=== PATIENT | male | born 1990 | race African-American/Black ===

== ENCOUNTER 2018-06-04 09:38 | Emergency (ER) | payer MEDICAID ==
[~2018-06-04] VITALS: Ht 170.2 cm; Wt 64.5 kg
[~2018-06-04 09:38] MED LIST: ALBU8HFA PO; ONDA8TAB9 PO
[2018-06-04] MEDS ORDERED: ondansetron/PF 4mg/2ml inj IV ONE (10:00)
[2018-06-04] MEDS ORDERED: normal saline 1000ML IV soln IVB ONE (10:00)
[2018-06-04] MEDS ORDERED: ketorolac trometh. 30mg/ml inj. IV ONE (10:00)
[2018-06-04 10:40] LABS: BASOPHILS % (AUTO) 0.8 % (0-1); EOSINOPHILS % (AUTO) 0.4 % (0-6); HEMATOCRIT 43.2 % (42.0-52.0); HEMOGLOBIN 15.2 g/dl (14.0-17.9); LYMPHOCYTES # (AUTO) 0.8 X10'3 (1.1-4.8); LYMPHOCYTES % (AUTO) 15.4 % (21-51); MEAN CORPUSCULAR HEMOGLOBIN 34.7 PG (27.0-31.0); MEAN CORPUSCULAR HGB CONC 35.1 g/dL (33.0-36.5); MEAN CORPUSCULAR VOLUME 98.6 FL (78-98); MONOCYTES # (AUTO) 0.7 X10'3 (0-0.9); MONOCYTES % (AUTO) 14.1 % (2-12); NEUTROPHILS # (AUTO) 3.6 X10'3 (1.8-7.7); NEUTROPHILS % (AUTO) 69.3 % (42-75); PLATELET COUNT 297 X10'3 (140-440); RED BLOOD COUNT 4.38 X10'6 (4.70-6.10); WHITE BLOOD COUNT 5.2 X10'3 (4.5-11.0)
[2018-06-04 10:53] LABS: ALANINE AMINOTRANSFERASE 27 U/L (12-78); ALBUMIN 4.3 G/DL (3.4-5.0); ALBUMIN/GLOBULIN RATIO 1.1 (1.1-1.5); ALKALINE PHOSPHATASE 81 IU/L (46-116); ANION GAP 11 (8-16); ASPARTATE AMINO TRANSFERASE 31 U/L (10-37); BILIRUBIN,TOTAL 0.5 MG/DL (0.1-1.0); BLOOD UREA NITROGEN 14 MG/DL (7-18); BUN/CREATININE RATIO 13.3 (5.4-32.0); CALCIUM 9.4 MG/DL (8.5-10.1); CHLORIDE 96 MMOL/L (99-107); CREATININE 1.05 MG/DL (0.60-1.10); GLUCOSE 89 MG/DL (70-104); LIPASE 93 U/L (73-393); POTASSIUM 3.7 MMOL/L (3.5-5.1); SODIUM 131 MMOL/L (135-145); TOTAL CARBON DIOXIDE 24.4 MMOL/L (24-32); TOTAL PROTEIN 8.2 G/DL (6.4-8.2); eGFR > 90 ML/MIN
[2018-06-04] MEDS ORDERED: ONDA4TAB6 PO (11:00)
[2018-06-04 11:21] VITALS: BP 147/99
== END 2018-06-04 11:23 | disposition home or self-care (01) ==
LOC: ER 09:38
DX: R11.2 Nausea with vomiting, unspecified (principal); R19.7 Diarrhea, unspecified; F17.200 Nicotine dependence, unspecified, uncomplicated; F12.90 Cannabis use, unspecified, uncomplicated; Z98.890 Other specified postprocedural states
CPT/HCPCS: 36415; 80053; 83690; 85025; 96374; 96375; 99283; J1885; J2405; J7030; 96361

== ENCOUNTER 2018-07-12 10:41 | Emergency (ER) | payer MEDICAID ==
[~2018-07-12] VITALS: Ht 170.2 cm; Wt 61.4 kg
[~2018-07-12 10:41] MED LIST changes: +ONDA4TAB6 PO
[2018-07-12 10:44] VITALS: BP 134/78
== END 2018-07-12 11:53 | disposition home or self-care (01) ==
LOC: ER 10:42
DX: F41.9 Anxiety disorder, unspecified (principal); F12.90 Cannabis use, unspecified, uncomplicated; Z98.890 Other specified postprocedural states
CPT/HCPCS: 93005; 99284

== ENCOUNTER 2020-12-28 16:02 | Emergency (ER) | payer MEDICAID ==
[~2020-12-28] VITALS: Ht 170.2 cm; Wt 60.9 kg
[2020-12-28 16:07] VITALS: BP 131/87
[2020-12-28] MEDS ORDERED: bacitracin 15gm ointment TP ONE (17:00)
[2020-12-28] MEDS ORDERED: ketorolac tromethamine 15mg/ml inj. IM ONE (17:10)
== END 2020-12-28 18:12 | disposition home or self-care (01) ==
LOC: ER 16:03
DX: S50.812A Abrasion of left forearm, initial encounter (principal); S50.811A Abrasion of right forearm, initial encounter; S80.212A Abrasion, left knee, initial encounter; F41.9 Anxiety disorder, unspecified; F12.10 Cannabis abuse, uncomplicated; V49.9XXA Car occupant (driver) (passenger) injured in unspecified traffic accident, initial encounter; Y93.89 Activity, other specified; Y92.89 Other specified places as the place of occurrence of the external cause; Y99.8 Other external cause status
CPT/HCPCS: 96372; 99284; J1885

== ENCOUNTER 2021-01-24 22:53 | Emergency (ER) | payer MEDICAID ==
[~2021-01-24] VITALS: Ht 170.2 cm; Wt 61.4 kg
[2021-01-24 22:56] VITALS: BP 120/72
== END 2021-01-25 01:07 | disposition home or self-care (01) ==
LOC: ER 22:54
DX: R68.84 Jaw pain (principal); R42 Dizziness and giddiness; F41.9 Anxiety disorder, unspecified; F12.90 Cannabis use, unspecified, uncomplicated; Z98.890 Other specified postprocedural states; Z79.899 Other long term (current) drug therapy
CPT/HCPCS: 99281

== ENCOUNTER 2023-01-26 09:47 | Emergency (ER) | payer MEDICAID ==
[~2023-01-26] VITALS: Ht 170.2 cm; Wt 60.2 kg
[2023-01-26 10:57] LABS: BASOPHILS % (AUTO) 0.9 % (0-1); EOSINOPHILS # (AUTO) 0.2 X10'3 (0-0.9); EOSINOPHILS % (AUTO) 3.3 % (0-6); HEMATOCRIT 38.8 % (42.0-52.0); HEMOGLOBIN 13.3 g/dl (14.0-17.9); LYMPHOCYTES # (AUTO) 1.6 X10'3 (1.1-4.8); LYMPHOCYTES % (AUTO) 31.6 % (21-51); MEAN CORPUSCULAR HEMOGLOBIN 34.3 PG (27.0-31.0); MEAN CORPUSCULAR HGB CONC 34.2 g/dL (33.0-36.5); MEAN CORPUSCULAR VOLUME 100.2 FL (78-98); MEAN PLATELET VOLUME 7.9 FL (7.4-10.4); MONOCYTES # (AUTO) 0.7 X10'3 (0-0.9); MONOCYTES % (AUTO) 12.7 % (2-12); NEUTROPHILS # (AUTO) 2.6 X10'3 (1.8-7.7); NEUTROPHILS % (AUTO) 51.5 % (42-75); PLATELET COUNT 316 X10'3 (140-440); RED BLOOD COUNT 3.88 X10'6 (4.70-6.10); RED CELL DISTRIBUTION WIDTH 13.2 % (11.5-14.5); WHITE BLOOD COUNT 5.1 X10'3 (4.5-11.0)
[2023-01-26 11:13] LABS: ALANINE AMINOTRANSFERASE 32 U/L (12-78); ALBUMIN 3.5 G/DL (3.4-5.0); ALBUMIN/GLOBULIN RATIO 0.9 (1.1-1.5); ALKALINE PHOSPHATASE 84 IU/L (46-116); AMYLASE 103 U/L (25-115); ANION GAP 2 (8-16); BILIRUBIN,TOTAL 0.1 MG/DL (0.1-1.0); BLOOD UREA NITROGEN 10 MG/DL (7-18); BUN/CREATININE RATIO 11.1 (10.0-20.0); CALCIUM 9.2 MG/DL (8.5-10.1); CHLORIDE 105 MMOL/L (99-107); GLUCOSE 91 MG/DL (70-104); POTASSIUM 3.8 MMOL/L (3.5-5.1); SODIUM 139 MMOL/L (135-145); TOTAL CARBON DIOXIDE 31.9 MMOL/L (24-32); TOTAL PROTEIN 7.2 G/DL (6.4-8.2); eCRCL 99 ML/MIN; eGFR > 90 ML/MIN
[2023-01-26 11:14] LABS: ASPARTATE AMINO TRANSFERASE 28 U/L (10-37); LIPASE 41 U/L (16-77)
[2023-01-26 11:42] VITALS: BP 140/89; PULSE 76; RESP 12; TEMP 97.8; O2SAT 100
--- NOTE | 2023-01-26 11:55 | NUR ---
PA NOTIFIED THAT PT IS ROOM READY FOR [facility]
[2023-01-26] MEDS ORDERED: HYDR25SU32 RC (13:04)
== END 2023-01-26 13:25 | disposition home or self-care (01) ==
LOC: ER 09:48
DX: K64.8 Other hemorrhoids (principal); F41.9 Anxiety disorder, unspecified; F12.10 Cannabis abuse, uncomplicated; Z79.899 Other long term (current) drug therapy
CPT/HCPCS: 36415; 80053; 82150; 83690; 85025; 99283

== ENCOUNTER 2023-01-27 16:20 | Emergency (ER) | payer MEDICAID ==
[~2023-01-27] VITALS: Ht 170.2 cm; Wt 60.1 kg
[~2023-01-27 16:20] MED LIST changes: +HYDR25SU32 RC
[2023-01-27 16:51] VITALS: BP 119/73; PULSE 103; RESP 19; TEMP 97.9; O2SAT 100
[2023-01-27 18:43] LABS: BASOPHILS % (AUTO) 0.4 % (0-1); EOSINOPHILS # (AUTO) 0.2 X10'3 (0-0.9); EOSINOPHILS % (AUTO) 1.8 % (0-6); HEMATOCRIT 38.4 % (42.0-52.0); HEMOGLOBIN 13.1 g/dl (14.0-17.9); LYMPHOCYTES # (AUTO) 0.9 X10'3 (1.1-4.8); LYMPHOCYTES % (AUTO) 11.1 % (21-51); MEAN CORPUSCULAR HGB CONC 34.1 g/dL (33.0-36.5); MEAN CORPUSCULAR VOLUME 99.8 FL (78-98); MEAN PLATELET VOLUME 7.4 FL (7.4-10.4); MONOCYTES % (AUTO) 12.1 % (2-12); NEUTROPHILS # (AUTO) 6.3 X10'3 (1.8-7.7); NEUTROPHILS % (AUTO) 74.6 % (42-75); PLATELET COUNT 333 X10'3 (140-440); RED BLOOD COUNT 3.85 X10'6 (4.70-6.10); RED CELL DISTRIBUTION WIDTH 13.2 % (11.5-14.5); WHITE BLOOD COUNT 8.4 X10'3 (4.5-11.0)
[2023-01-27 18:55] LABS: ALANINE AMINOTRANSFERASE 30 U/L (12-78); ALBUMIN 3.5 G/DL (3.4-5.0); ALBUMIN/GLOBULIN RATIO 0.9 (1.1-1.5); ALKALINE PHOSPHATASE 92 IU/L (46-116); ANION GAP 6 (8-16); ASPARTATE AMINO TRANSFERASE 27 U/L (10-37); BILIRUBIN,TOTAL 0.1 MG/DL (0.1-1.0); BLOOD UREA NITROGEN 9 MG/DL (7-18); CALCIUM 9.2 MG/DL (8.5-10.1); CHLORIDE 102 MMOL/L (99-107); GLUCOSE 104 MG/DL (70-104); POTASSIUM 3.7 MMOL/L (3.5-5.1); SODIUM 139 MMOL/L (135-145); TOTAL CARBON DIOXIDE 31.4 MMOL/L (24-32); TOTAL PROTEIN 7.5 G/DL (6.4-8.2); eCRCL 89 ML/MIN; eGFR > 90 ML/MIN
[2023-01-27 18:57] LABS: LIPASE 38 U/L (16-77)
--- NOTE | 2023-01-28 06:30 | NUR ---
NOT IN LOBBY FOR DAY SHIFT. PT CALLED X3 AT [phone]. NOT IN LOBBY
== END 2023-01-28 06:31 | disposition left against medical advice (07) ==
LOC: ER 16:20
DX: R10.31 Right lower quadrant pain (principal); Z53.21 Procedure and treatment not carried out due to patient leaving prior to being seen by health care provider
CPT/HCPCS: 36415; 80053; 83690; 85025; 99281

== ENCOUNTER 2023-12-13 16:17 | Emergency (ER) | payer MEDICAID ==
[~2023-12-13] VITALS: Ht 170.2 cm; Wt 59.0 kg
[2023-12-13 16:27] VITALS: BP 118/76; PULSE 50; RESP 14; TEMP 97.8; O2SAT 98
== END 2023-12-13 17:45 | disposition home or self-care (01) ==
LOC: ER 16:18
DX: S60.221A Contusion of right hand, initial encounter (principal); M79.641 Pain in right hand; F41.9 Anxiety disorder, unspecified; F12.90 Cannabis use, unspecified, uncomplicated; Z88.8 Allergy status to other drugs, medicaments and biological substances; Z79.52 Long term (current) use of systemic steroids; Z79.899 Other long term (current) drug therapy; Z98.890 Other specified postprocedural states; X58.XXXA Exposure to other specified factors, initial encounter; Y93.89 Activity, other specified; Y92.89 Other specified places as the place of occurrence of the external cause; Y99.8 Other external cause status
CPT/HCPCS: 73130; 99283; A6449

== ENCOUNTER 2024-04-23 23:37 | Emergency (ER) | payer MEDICAID ==
[~2024-04-23] VITALS: Ht 170.2 cm; Wt 63.6 kg
[2024-04-24] MEDS: ondansetron 4mg rapidly disintigrating tab PO ONE (00:59)
[2024-04-24] MEDS: meclizine 12.5mg tablet PO ONE (00:59)
[2024-04-24 01:35] VITALS: BP 130/75; PULSE 92; RESP 16; TEMP 98.6; O2SAT 98
== END 2024-04-24 01:40 | disposition home or self-care (01) ==
LOC: ER 23:37
DX: F12.10 Cannabis abuse, uncomplicated (principal); R42 Dizziness and giddiness; R11.2 Nausea with vomiting, unspecified; F41.9 Anxiety disorder, unspecified; R06.02 Shortness of breath; Z88.8 Allergy status to other drugs, medicaments and biological substances; Z98.890 Other specified postprocedural states
CPT/HCPCS: 99283; J8597

== ENCOUNTER 2024-08-07 18:45 | Emergency (ER) | payer MEDICAID ==
[~2024-08-07] VITALS: Ht 170.2 cm; Wt 63.1 kg
[2024-08-07] MEDS: LIDOcaine 1% 30ml preserv. free vial SQ STA (19:43)
--- NOTE | 2024-08-07 19:44 | Physician Documentation ---
History of Present Illness General Chief Complaint: Tooth Problem Stated Complaint: MOUTH/TOOTH PAIN Time Seen by MD: 19:17 Primary Medical Doctor: None History of Present Illness Initial Comments 34-year-old male who presents to the emergency department with complaint of dentalgia to the left lower rear molars. Reports gum irritation also. Pain is moderate in severity. No scheduled appointment to see the dentist as of yet. No recent illness injury and/or fevers. Has hot and cold sensitivities. Medication Reconciliation Allergies: Coded Allergies: acetaminophen (Verified Allergy, Severe, 08/07/24) hydrocodone (Verified Allergy, Severe, 08/07/24) Scheduled Chlorhexidine Gluconate (Chlorhexidine Gluconate), 15 ML PO Q12H Hydrocortisone Acetate (Anusol-Hc), 1 SUPP RC Q12H Ibuprofen* (Motrin*), 400 MG PO Q8H Ondansetron (Zofran Odt), 1 TAB PO Q8H Ondansetron Hcl (Zofran), 1 TAB PO Q8H Penicillin V Potassium* (Penicillin VK*), 1 TAB PO Q12H Scheduled PRN albuterol inhaler (Pro-Air Inhaler), 1-2 PUFFS PO Q4H PRN for SOB or wheezing Past Medical History Past Medical History: *GI/HEPATOBILIARY*, Hernia, Anxiety Other Past Surgical History: Hernia repair and premature surgeries Alcohol Use: None Drug Use: marijuana Lives In: Home Occupation: employed Review of Systems All Other Systems at this time: Reviewed and Negative Constitutional: Denies: fever, chills ENT Dentalgia Physical Exam Physical Exam Vital Signs: RN Vital Signs have been reviewed: Yes, Temperature: 98.3, Source: Oral, Heart Rate: 99, Respiratory Rate: 18, BP: 123/81, Pulse Oximetry: 98, Weight: 63.090 Oxygen Flow Rate: 0 General Appearance: alert, WD/WN, moderate distress Head: normal inspection Face: normal inspection Pupils/EOM/Fundus: PERRLA Nose: normal inspection Oropharynx: other (Tooth 17. And 18 your tender to percussion without obvious decay. Gingiva inflammation noted without periapical abscess) Neck: non-tender, full range of motion, supple Extremities: normal range of motion Neurologic: oriented x4 Motor / Sensory: no motor deficit, no sensory deficit Psychiatric: normal mood/affect, anxiety Skin: normal color, warm/dry; No: rash Progress Results/Orders Results/Orders Completed Orders - NOEL MATHIS Lidocaine 1% 30ml Vial (Xylocaine 1% Via (08/07/24 19:19) Medications Received in ER Medications (Trade) Dose Ordered Sig/Madhu Route PRN Reason Start Time Stop Time Status Last Admin Dose Admin (Xylocaine 1% vial) ONCE STAT SQ 08/07/24 19:19 08/07/24 19:20 DC 08/07/24 19:43 30 ML Vital Signs 08/07/24 18:46 Temp 98.3 Pulse 99 Resp 18 B/P (MAP) 123/81 Pulse Ox 98 O2 Flow Rate 0 Medical Decision Making Differential Diagnosis Examination history consistent with dentalgia with likely odontogenic infection. Patient was provided verbal consent for the gum injection with lidocaine. With a number 27 gauge needle 1 cc of 1% lidocaine the at the gumline of number 17 18 tooth. At 1 minute pain was 70% resolved at 2 minutes completely gone. No obvious periapical abscess or dental fractures. No clinical suspicion for Abilio's angina patient was cellulitis. We will begin outpatient antibiotic t herapy and Peridex with recommendation of dentist follow up. Departure Disposition: HOME / SELF CARE / HOMELESS Impression: Primary Impression: Toothache Condition: Improved Discharge Instructions: Dental Pain Additional Instructions: Tonight in the emergency department you received a lidocaine injection to tooth number 18. Please begin Peridex, penicillin and ibuprofen as directed. Make scheduled follow up appointment with the dentist for consideration of further dental management. Referrals: NO PRIMARY CARE PROVIDER (PCP) Prescriptions Chlorhexidine Gluconate (Chlorhexidine Gluconate) 0.12 % Mouthwash 15 ML PO Q12H for 14 Days, #473 ML 0 Refills Swish and spit Prov: NOEL MATHIS 08/07/24 Ibuprofen* (Motrin*) 400 Mg Tablet 400 MG PO Q8H, #20 TAB Prov: NOEL MATHIS 08/07/24 Penicillin V Potassium* (Penicillin VK*) 500 Mg Tablet 1 TAB PO Q12H for 10 Days, #20 TAB Prov: NOEL MATHIS 08/07/24 Education Educated: Patient Educated regarding: diagnosis, treatment Signature Scribe Signature: . Attestation: . NOEL MATHIS August 07, 2024 19:44
[2024-08-07] MEDS ORDERED: PENI500T2 PO (19:46)
[2024-08-07] MEDS ORDERED: IBUP-1984 PO (19:46)
[2024-08-07] MEDS ORDERED: CHLO473M2 PO (19:46)
[2024-08-07 20:04] VITALS: BP 120/80; PULSE 99; RESP 18; TEMP 98.6; O2SAT 99
== END 2024-08-07 20:05 | disposition home or self-care (01) ==
LOC: ER 18:45
DX: K08.89 Other specified disorders of teeth and supporting structures (principal); Z88.5 Allergy status to narcotic agent; Z88.8 Allergy status to other drugs, medicaments and biological substances; Z98.890 Other specified postprocedural states; F12.90 Cannabis use, unspecified, uncomplicated
CPT/HCPCS: 64400; 99284; J2003; 96372; 99283

== ENCOUNTER 2024-11-21 10:51 | Emergency (ER) | payer MEDICAID ==
[~2024-11-21] VITALS: Ht 170.2 cm; Wt 67.3 kg
[~2024-11-21 10:51] MED LIST changes: +CHLO473M2 PO
[2024-11-21 11:02] VITALS: TEMP 98.3
--- NOTE | 2024-11-21 11:07 | ELECTROCARDIOGRAPH REPORT ---
[facility] Test Date: 2024-11-21 Test Time: 11:05:32 Pat Name: SUSANA ADHIKARI Department: EMERGENCY ROOM Room: Gender: M Director Financial Services: : 1990 Requested By: MICHAEL HERNANDEZ Order Number: [id number] Reading MD: Measurements Intervals [place] Rate: 133 P: 87 VT: 136 QRS: 77 QRSD: 77 T: -1 QT: 292 QTc: 435 Interpretive Statements Sinus tachycardia Borderline repolarization abnormality Please click the below link to view image of tracing.
[2024-11-21 11:29] LABS: MEAN PLATELET VOLUME 8.0 FL (7.4-10.4); RED CELL DISTRIBUTION WIDTH 13.7 % (11.5-14.5)
--- NOTE | 2024-11-21 11:33 | RADIOLOGY REPORT ---
EXAM: DI CHEST,SINGLE VIEW HISTORY: CP COMPARISON: None TECHNIQUE: PA upright view of the chest was performed. FINDINGS: No pneumothorax, consolidative infiltrates, or pulmonary edema. The heart is not enlarged. There are bilateral metallic nipple piercings. IMPRESSION: No acute intrathoracic process.
[2024-11-21 11:56] LABS: CREATININE 1.09 MG/DL (0.60-1.10); PRO BRAIN NATRIURETIC PEPTIDE < 30 PG/ML (0-125); TOTAL CARBON DIOXIDE 31.5 MMOL/L (24-32); eCRCL 88 ML/MIN; eGFR > 90 ML/MIN
[2024-11-21 14:53] VITALS: RESP 18
[2024-11-21 15:26] LABS: STREP A SCREEN NEGATIVE (Neg)
--- NOTE | 2024-11-21 16:18 | Physician Documentation ---
History of Present Illness ~ Chief Complaint: Shortness of Breath Stated Complaint: SORE THROAT Time Seen by MD: 14:22 Primary Medical Doctor: None Mode of Arrival: PO HPI Patient is a 34-year-old gentleman that presents to the emergency department for evaluation of shortness of breath accompanied by congestion possible fevers severe sore throat and a cough x1 week. Patient denies chest pain palpitations lightheaded or any dizziness at this time. Patient denies any other complaints at this time. Patient denies any other significant past medical history other than childhood asthma. Medication Reconciliation Allergies: Coded Allergies: acetaminophen (Verified Allergy, Severe, 11/21/24) hydrocodone (Verified Allergy, Severe, 11/21/24) Scheduled Chlorhexidine Gluconate (Chlorhexidine Gluconate), 15 ML PO Q12H Hydrocortisone Acetate (Anusol-Hc), 1 SUPP RC Q12H Ondansetron (Zofran Odt), 1 TAB PO Q8H Ondansetron Hcl (Zofran), 1 TAB PO Q8H Scheduled PRN albuterol inhaler (Pro-Air Inhaler), 1-2 PUFFS PO Q4H PRN for SOB or wheezing Past Medical History Past Medical History: *GI/HEPATOBILIARY*, Hernia, Anxiety Other Past Surgical History: Hernia repair and premature surgeries Alcohol Use: None Drug Use: marijuana Lives In: Home Occupation: employed Review of Systems ROS As stated above in the HPI, otherwise all systems are reviewed and negative. Physical Exam Vital Signs: Temperature: 98.3, Source: Oral, Heart Rate: 93, Respiratory Rate: 18, BP: 125/81, Pulse Oximetry: 100, Weight: 67.300 Oxygen Flow Rate: 0 Physical Exam VITALS: Reviewed and as above. GENERAL: Alert, no apparent distress. HEENT: Normocephalic, atraumatic, PERRL, EOMI, dry mucosa, erythema noted to the posterior oropharynx, no exudate noted to the posterior oropharynx are tonsils RESPIRATORY: Lungs clear, normal breath sounds, no respiratory distress. CHEST: No accessory muscle use, no retractions CV: Regular rate, rhythm, no edema, no murmur, No: JVD GI: Soft, non-tender, bowels sounds present, no rebound, guarding, or rigidity BACK: No CVA tenderness, or swelling MUSCULOSKELETAL No deformities, no edema SKIN: Warm and dry, no rash NEURO: Oriented x4, No motor or sensory deficit PSYCH: Normal mood and affect, no agitation Progress Results/Orders Results/Orders Orders - CHANDA MILLER PHYSICAL THERAPY SUPERVISOR Cult Throat + R/O Beta Strep (11/21/24 15:27) Completed Orders - CHANDA MILLER PHYSICAL THERAPY SUPERVISOR Strep A Rapid (11/21/24 14:29) Vital Signs 11/21/24 11/21/24 11/21/24 11:02 14:53 14:53 Temp 98.3 Pulse 132 93 Resp 18 18 18 B/P (MAP) 120/73 125/81 (96) Pulse Ox 98 100 O2 Flow Rate 0 0 Laboratory Tests Test 11/21/24 11:08 11/21/24 14:56 11/21/24 14:59 White Blood Count 4.9 Red Blood Count 4.14 L Hemoglobin 13.5 L Hematocrit 39.6 L Mean Corpuscular Volume 95.6 Mean Corpuscular Hemoglobin 32.5 H Mean Corpuscular Hemoglobin Concent 34.0 Red Cell Distribution Width 13.7 Platelet Count 278 Mean Platelet Volume 8.0 Neutrophils (%) (Auto) 55.5 Lymphocytes (%) (Auto) 28.5 Monocytes (%) (Auto) 10.6 Eosinophils (%) (Auto) 4.5 Basophils (%) (Auto) 0.9 Neutrophils # (Auto) 2.7 Lymphocytes # (Auto) 1.4 Monocytes # (Auto) 0.5 Eosinophils # (Auto) 0.2 Basophils # (Auto) 0.0 CBC Comment Sodium Level 139 Potassium Level 4.0 Chloride Level 103 Carbon Dioxide Level 31.5 Anion Gap 5 L Blood Urea Nitrogen 15 Creatinine 1.09 Estimated GFR/1.73 m2 > 90 BUN/Creatinine Ratio 13.8 Glucose Level 130 H Calcium Level 9.0 Troponin I High Sensitivity 41 Pro-B-Type Natriuretic Peptide < 30 Albumin 3.3 L Chemistry Comments Group A Streptococcus Rapid Negative SARS-CoV-2 Antigen (Rapid) Negative Medical Decision Making Findings This patient presents with symptoms suspicious for likely viral upper respiratory infection. Based on history and physical doubt sinusitis. COVID and rapid strep were sent with negative results Do not suspect underlying card iopulmonary process. Chest x-ray 12 lead negative for any abnormal or concerning findings. I considered, but think unlikely, dangerous causes of this patients symptoms to include ACS, CHF or COPD exacerbations, pneumonia, pneumothorax. Patient is nontoxic appearing and not in need of emergent medical intervention. Patient told to self isolate at home until symptoms subside for 72 hours, and that they will call with FLU Aand B results. Albuterol inhaler prescribed. Patient will follow up with primary care provider. Return to the emergency department with any worsening of his current symptoms or any additional concerning symptoms that we discussed here today i.e. shortness of breath chest pain chest palpitations increased cough persisting past the next 2 weeks productive cough presents with fevers or any other concerning symptoms. 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 Provided education and provided strict return precautions to the emergency department. Patient will return if his symptoms persist or he has any worsening of his current symptoms. Differential Dx:Considerations: Include: anxiety, asthma, bronchitis, cardiogenic shock, CHF, COPD, dysrhythmia, hypertension, accelerated, hypertension, essential, hypertension, malignant, hyperventilation, hyponatremia, myocardial infarction, panic attack, pneumonia, pneumonitis, pneumothorax, PSVT, pulmonary embolism, respiratory distress, respiratory failure, sinusitis, upper resp. infection, other Departure Disposition: 01 HOME / SELF CARE / HOMELESS Impression: Primary Impression: Asthma Additional Impressions: Shortness of breath URI (upper respiratory infection) Condition: Stable Discharge Instructions: Asthma, Adult, [id number], Viral Syndrome, Upper Respiratory Infection, Adult Additional Instructions: This patient presents with symptoms suspicious for likely viral upper respiratory infection. Based on history and physical doubt sinusitis. COVID and rapid strep were sent with negative results Do not suspect underlying cardiopulmonary process. Chest x-ray 12 lead negative for any abnormal or concerning findings. I considered, but think unlikely, dangerous causes of this patients symptoms to include ACS, CHF or COPD exacerbations, pneumonia, pneumothorax. Patient is nontoxic appearing and not in need of emergent medical intervention. Patient told to self isolate at home until symptoms subside for 72 hours, and that they will call with FLU Aand B results. Albuterol inhaler prescribed. Patient will follow up with primary care provider. Return to the emergency department with any worsening of his current symptoms or any additional concerning symptoms that we discussed here today i.e. shortness of breath chest pain chest palpitations increased cough persisting past the next 2 weeks productive cough presents with fevers or any other concerning symptoms. We discussed continuing with the femur diagnostics today but he reports that you have to leave to pickler helper her child. So we have gone over strict return precautions to the emergency department. Please return if her symptoms persist or you have any additional concerning symptoms. Patient is a regular as prescribed. Referrals: NO PRIMARY CARE PROVIDER (PCP) Prescriptions albuterol inhaler (Pro-Air Inhaler) 8.5 Gm Inhaler 2 PUFFS INH Q4HPRN PRN for wheezing for 30 Days, #18 GM Prov: CHANDA MILLER 11/21/24 Education Educated: Patient Educated regarding: diagnosis, need for follow up Signature Scribe Signature: A Attestation: Scribed for Chanda Miller by AYDEN Luis . 11/21/24 16:23 CHANDA MILLER Nov 21, 2024 16:18
[2024-11-21] MEDS ORDERED: ALBU8HFA INH (16:20)
[2024-11-21 16:23] VITALS: BP 127/82; PULSE 97; O2SAT 100
== END 2024-11-21 16:27 | disposition home or self-care (01) ==
LOC: ER 10:51
DX: J06.9 Acute upper respiratory infection, unspecified (principal); J45.909 Unspecified asthma, uncomplicated; F12.90 Cannabis use, unspecified, uncomplicated; F41.9 Anxiety disorder, unspecified; Z88.5 Allergy status to narcotic agent; Z88.8 Allergy status to other drugs, medicaments and biological substances; Z98.890 Other specified postprocedural states; Z79.899 Other long term (current) drug therapy; Z20.822 Contact with and (suspected) exposure to COVID-19
CPT/HCPCS: 36415; 71045; 80048; 83880; 84484; 85025; 87081; 87811; 87880; 93005; 99285

== ENCOUNTER 2024-12-25 07:22 | Emergency (ER) | payer MEDICAID ==
[~2024-12-25] VITALS: Ht 170.2 cm; Wt 67.2 kg
[2024-12-25 08:13] LABS: LEUKOCYTE ESTERASE ,URINE NEGATIVE (Neg); NITRITES, URINE NEGATIVE (Neg); OCCULT BLOOD,URINE NEGATIVE (Neg)
[2024-12-25 08:16] LABS: MEAN PLATELET VOLUME 7.8 FL (7.4-10.4); RED CELL DISTRIBUTION WIDTH 13.5 % (11.5-14.5)
[2024-12-25 08:32] LABS: CREATININE 1.00 MG/DL (0.60-1.10); TOTAL CARBON DIOXIDE 26.1 MMOL/L (24-32); eCRCL 96 ML/MIN; eGFR > 90 ML/MIN
[2024-12-25 08:34] LABS: UA COLLECTION TYPE CLN CATCH MIDSTREAM
[2024-12-25 08:36] LABS: MUCUS STRANDS MANY /LPF (Neg); SQUAMOUS EPITHELIAL CELL,UR NONE SEEN /LPF (FEW)
--- NOTE | 2024-12-25 09:58 | Physician Documentation ---
History of Present Illness ~ Chief Complaint: Back Pain Stated Complaint: KIDNEY PAIN Time Seen by MD: 09:01 Primary Medical Doctor: None HPI Patient is seen today with complaints of low back pain that started last night. Patient admits to fever body aches and chills with diarrhea and some nausea. Patient states his kids have also had similar symptoms. Patient denies any urin jossue symptoms and denies any chest pain or shortness of breath or abdominal pain or vomiting. Patient denies any change in physical activity recently in his no other concern or complaint at this time. Medication Reconciliation Allergies: Coded Allergies: acetaminophen (Verified Allergy, Severe, 12/25/24) hydrocodone (Verified Allergy, Severe, 12/25/24) Scheduled Chlorhexidine Gluconate (Chlorhexidine Gluconate), 15 ML PO Q12H Hydrocortisone Acetate (Anusol-Hc), 1 SUPP RC Q12H Ondansetron (Zofran Odt), 1 TAB PO Q8H Ondansetron Hcl (Zofran), 1 TAB PO Q8H Scheduled PRN albuterol inhaler (Pro-Air Inhaler), 1-2 PUFFS PO Q4H PRN for SOB or wheezing Discontinued Medications albuterol inhaler (Pro-Air Inhaler), 2 PUFFS INH Q4HPRN PRN for wheezing Discontinued Reason: Auto Discontinued Past Medical History Past Medical History: *GI/HEPATOBILIARY*, Hernia, Anxiety Other Past Surgical History: Hernia repair and premature surgeries Alcohol Use: None Drug Use: marijuana Lives In: Home Occupation: employed Review of Systems Constitutional: Denies: chills, fever, weakness Eyes: Denies: pain, blurred vision ENT: Denies: ear pain, nose pain, throat pain, mouth pain Respiratory: Denies: cough, shortness of breath Cardiovascular: Denies: chest pain, palpitations Gastrointestinal: Denies: abdominal pain, nausea, vomiting Genitourinary: Denies: burning, dysuria Male Genitalia: Denies: penile discharge, testicular pain Neurological: Denies: headache, dizziness Musculoskeletal: Denies: pain, swelling Integumentary: Denies: rash, lesions Allergic/Immunologic: Denies: hives, itching Hematologic/Lymphatic: Denies: no symptoms reported Psychiatric: Denies: depression, anxiety Physical Exam Physical Exam Vital Signs: Temperature: 97.8, Source: Oral, Heart Rate: 89, Respiratory Rate: 16, BP: 108/72, Pulse Oximetry: 98, Weight: 67.200 Oxygen Flow Rate: 0 Physical Exam General: Awake and Alert, no acute distress. HEENT: Conjunctiva pink, Sclera clear, Mucus Membranes moist. Neck: Supple without masses and tenderness. Resp: Unlabored. Lungs clear to auscultation bilaterally. Heart: Regular Rate and rhythm, normal S1 and S2 without murmur, rub or gallop. Abdomen: Soft and non tender no organomegaly Musculoskeletal: Patient on exam does have tenderness to palpation of the paraspinal muscles of the lumbar spine without tenderness to palpation of the spinous processes. Patient has decreased range of motion of the lumbar spine in all planes of motion. Patient is neurovascularly intact distally. Motor function and strength intact distally. Extremities: No cyanosis,clubbing or edema. Skin: Warm and Dry. Progress Results/Orders Results/Orders Vital Signs 12/25/24 07:27 Temp 97.8 Pulse 89 Resp 16 B/P (MAP) 108/72 Pulse Ox 98 O2 Flow Rate 0 Laboratory Tests Test 12/25/24 07:40 12/25/24 07:59 Urine Specimen Description Cln catch midstream Urine Color Yellow Urine Clarity Clear Urine pH 6.0 Urine Specific [place] >=1.030 Urine Protein 30 H Urine Glucose (UA) Negative Urine Ketones Negative Urine Occult Blood Negative Urine Nitrite Negative Urine Bilirubin Negative Urine Urobilinogen 0.2 Urine Leukocyte Esterase Negative Urine RBC None seen Urine WBC 0-4 Urine Squamous Epithelial Cells None seen Urine Bacteria None seen Urine Mucus Many Urine Culture Indicated Not ind Volume Urine Centrifuged 10 ml Urine Comment White Blood Count 3.9 L Red Blood Count 4.54 L Hemoglobin 14.6 Hematocrit 44.0 Mean Corpuscular Volume 96.8 Mean Corpuscular Hemoglobin 32.1 H Mean Corpuscular Hemoglobin Concent 33.2 Red Cell Distribution Width 13.5 Platelet Count 235 Mean Platelet Volume 7.8 Neutrophils (%) (Auto) 79.4 H Lymphocytes (%) (Auto) 6.7 L Monocytes (%) (Auto) 9.5 Eosinophils (%) (Auto) 3.9 Basophils (%) (Auto) 0.5 Neutrophils # (Auto) 3.1 Lymphocytes # (Auto) 0.3 L Monocytes # (Auto) 0.4 Eosinophils # (Auto) 0.2 Basophils # (Auto) 0.0 CBC Comment Sodium Level 139 Potassium Level 3.8 Chloride Level 104 Carbon Dioxide Level 26.1 Anion Gap 9 Blood Urea Nitrogen 21 H Creatinine 1.00 Estimated GFR/1.73 m2 > 90 BUN/Creatinine Ratio 21.0 H Glucose Level 89 Calcium Level 8.5 Total Bilirubin 0.3 Aspartate Amino Transf (AST/SGOT) 19 Alanine Aminotransferase (ALT/SGPT) 22 Alkaline Phosphatase 93 Total Protein 7.6 Albumin 3.4 Globulin 4.2 Albumin/Globulin Ratio 0.8 L Lipase 48 Chemistry Comments Medical Decision Making Findings Patient is seen today with complaints of low back pain that started last night. Patient admits to fever body aches and chills with diarrhea and some nausea. Patient states his kids have also had similar symptoms. Patient denies any urinary symptoms and denies any chest pain or shortness of breath or abdominal pain or vomiting. Patient denies any change in physical activity recently in his no other concern or complaint at this time. Patient was given Toradol 30 mg IM in the ED today. Patient will continue to monitor symptoms closely and stay well hydrated and will monitor for resolution in the next day or so. Patient will return to ED with any worsening, concerning or changing symptoms. Patient will follow up with primary care in 2-5 days if n o better as needed sooner. Departure Disposition: HOME / SELF CARE / HOMELESS Impression: Primary Impression: Low back pain Qualified Codes: M54.50 - Low back pain, unspecified Additional Impression: Diarrhea Qualified Codes: R19.7 - Diarrhea, unspecified Condition: Stable Additional Instructions: Patient was given Toradol 30 mg IM in the ED today. Patient will continue to monitor symptoms closely and stay well hydrated and will monitor for resolution in the next day or so. Patient will return to ED with any worsening, concerning or changing symptoms. Patient will follow up with primary care in 2-5 days if no better as needed sooner. Referrals: NO PRIMARY CARE PROVIDER (PCP) Prescriptions Acetaminophen (Tylenol Extra Strength) 500 Mg Tablet 2 TAB PO Q6H PRN PRN for pain or fever for 7 Days, #56 TAB Prov: TIBURCIO BARROW 12/25/24 Ibuprofen (Ibuprofen) 800 Mg Tablet 1 TAB PO Q8H for pain for 10 Days, #30 TAB 0 Refills Prov: TIBURCIO BARROW 12/25/24 Signature Scribe Signature: No scribe Attestation: No scribe TIBURCIO BARROW PAC Dec 25, 2024 09:58
[2024-12-25] MEDS ORDERED: IBUP-1986 PO (09:59)
[2024-12-25] MEDS ORDERED: ACET-1025 PO (09:59)
[2024-12-25] MEDS: ketorolac trometh 30MG/ML vial 30 MG/ML VIAL IM STA (10:30)
[2024-12-25 10:33] VITALS: BP 110/80; PULSE 90; RESP 16; TEMP 98.6; O2SAT 98
== END 2024-12-25 10:34 | disposition home or self-care (01) ==
LOC: ER 07:23
DX: M54.50 Low back pain, unspecified (principal); R19.7 Diarrhea, unspecified; F41.9 Anxiety disorder, unspecified; F12.90 Cannabis use, unspecified, uncomplicated; Z88.5 Allergy status to narcotic agent; Z98.890 Other specified postprocedural states; Z88.8 Allergy status to other drugs, medicaments and biological substances; Z79.899 Other long term (current) drug therapy
CPT/HCPCS: 36415; 80053; 81001; 83690; 85025; 96372; 99283; J1885